=== PATIENT | male | born 1955 | race Caucasian/White ===

== ENCOUNTER → 2016-06-28 | Outpatient (CLI) | payer BC, OTHER ==
[~2016-06-28] MED LIST: ASPEC325 PO; BUSP15TA70 PO; CLB200 PO; HYDR-5688 PO; MAGN400T6 PO; OMEG10007 PO; OXYSR10 PO; TRAZ50TA35 PO
[2016-06-28 10:15] LABS: THYROID STIMULATING HORMONE 2.58 uIu/ml (0.300-4.500)
== END | disposition home or self-care (01) ==
LOC: C.LAB 06:48
PROVIDERS: ATTEND Family Medicine
DX: Z00.00 Encounter for general adult medical examination without abnormal findings (principal); Z11.59 Encounter for screening for other viral diseases; E03.9 Hypothyroidism, unspecified